=== PATIENT | male | born 1995 | race Hispanic/Latino ===

== ENCOUNTER 2021-07-18 05:40 | Day surgery (SDC) | payer OTHER ==
--- NOTE | 2021-07-18 06:18 | ER ---
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 Coronavirus screen: Vaccine status: Patient reports receiving the 2nd dose of the covid vaccine. Ebola Screen: Patient negative for fever greater than or equal to 101.5 degrees Fahrenheit, and additional compatible Ebola Virus Disease symptoms Patient denies exposure to infectious person. Patient denies travel to an Ebola-affected area in the 21 days before illness onset. No symptoms or risks identified at this time. Complicating Factors: There are no complicating factors for this patient. Initial Sepsis Screen: Does the patient meet any 2 criteria? No. Patient's initial sepsis screen is negative. Does the patient have a suspected source of infection? Yes: Skin breakdown/wound. Risk Assessment: Do you want to hurt yourself or someone else? Patient reports no desire to harm self or others. Onset of symptoms was July 18, 2021. 05:47 Method Of Arrival: Ambulatory em 05:47 Acuity: ANGELICA 3 em Triage Assessment: 06:00 General: Appears in no apparent distress. obese, well groomed, well developed. Neuro: dc2 No deficits noted. Respiratory: No deficits noted. GI: No deficits noted. : No signs and/or symptoms were reported regarding the genitourinary system. Musculoskeletal: No deficits noted. Injury Description: Avulsion sustained to see triage - right index finger is partial was sustained 6-12 hours ago. 06:00 General: Behavior is calm, cooperative. dc2 06:00 Pain: Complains of pain in Right index finger. dc2 06:00 Injury Description: Laceration. dc2 Historical: - Allergies: 05:50 No Known Allergies; em - PMHx: 05:50 None; em - PSHx: 05:50 None; em - Immunization history:: Last tetanus immunization: < 5 years ago. - Social history:: Smoking status: Patient denies any tobacco usage or history of. - Family history:: not pertinent. Screenin:00 Abuse screen: Denies threats or abuse. Denies injuries from another. Nutritional dc2 screening: No deficits noted. Tuberculosis screening: No symptoms or risk factors identified. Never had TB. 06:00 Fall Risk None identified. No fall in past 12 months (0 pts). dc2 Assessment: 06:00 General: Appears in no apparent distress. obese, well groomed, well developed. Neuro: dc2 No deficits noted. Cardiovascular: No deficits noted. Respiratory: No deficits noted. GI: No deficits noted. : No signs and/or symptoms were reported regarding the genitourinary system. Derm: Skin Avulsion to right index finger. Musculoskeletal: No deficits noted. 06:00 Injury Description: Laceration is jagged, bleeding moderately, avulsion to right index dc2 finger , was wrapped when came to ED with mod amount of bleeding, wound irrigated with normal saline and rewrapped with pressure dressing by BRUNILDA Hewitt. 06:45 Reassessment: Patient appears in no apparent distress at this time. Pain: Complains of em pain in right hand Pain currently is 1 out of 10 on a pain scale. 06:45 General: Small amt bleeding noted of intact saline dsg right index finger; reports not em needing "block" of right index finger; reports eating chicken biscuit \\T\\ [id number]-[id number] \\T\\ [address] Jett informed with no new order rec'd; instructed not to eat or drink anything due to scheduled surgery with v/u.. 07:17 General: Appears in no apparent distress. comfortable, Behavior is calm, cooperative, tw5 appropriate for age. Pain: Complains of pain in dorsal aspect of distal phalanx of right index finger and right index fingernail Pain currently is 1 out of 10 on a pain scale. Neuro: No deficits noted. Level of Consciousness is awake, alert, obeys commands, Oriented to person, place, time, situation. GI: Reports. Vital Signs: 05:47 BP 146 / 86; Pulse 56; Resp 18; Temp 97.8; Pulse Ox 99% on R/A; Weight 108.86 kg; em Height 5 ft. 9 in. (175.26 cm); Pain 5/10; 06:15 BP 132 / 77; Pulse 52; Resp 17; Pulse Ox 100% ; Pain 4/10; dc2 06:30 BP 121 / 86; Pulse 53; Resp 20; Pulse Ox 100% ; cc4 07:00 BP 119 / 72; Pulse 69; Resp 20; Pulse Ox 99% on R/A; cc4 05:47 Body Mass Index 35.44 (108.86 kg, 175.26 cm) em ED Course: 05:43 Patient arrived in ED. wm 05:44 Reinaldo Jett MD is Attending Physician. marlyn 05:50 Triage completed. em 05:50 Arm band placed on. em 05:55 ED physician to see patient. dc2 06:00 court monitor on. Pulse ox on. dc2 06:00 No provider procedures requiring assistance completed. dc2 06:13 Clayton Gomez MD is Hospitalizing Provider. marlyn 06:15 Inserted saline lock: 20 gauge in left antecubital area, using aseptic technique. Blood dc2 collected. 06:21 Comprehensive Metabolic Panel Sent. dc2 06:21 CBC w/o diff Sent. dc2 06:24 Patient has correct armband on for positive identification. Bed in low position. Call dc2 light in reach. Side rails up X 1. 06:48 Rena Reynoso RN is Primary Nurse. cc4 06:54 COVID-19 : Document "Date of Symptom Onset" if Symptomatic. Sent. cc4 07:08 Hand Right 3 View XRAY Sent. cc4 07:17 Primary Nurse role handed off by Rena Reynoso, RN tw5 07:17 Waleska Torres is Primary Nurse. tw5 07:17 No apparent distress. Resting quietly. Awaiting surgery, Awaiting: Patient reports last tw5 known meal at 0500 on July 18. 07:17 Recheck. Wound care: was dressed with 4X4s, saline soaked gauze. , Patient tolerated tw5 well. 08:40 Patient transferred, IV remains in place. intact. tw5 Administered Medications: 06:19 Drug: Ancef (cefazolin) 1 grams Route: IVPB; Infused Over: 30 mins; Site: left dc2 antecubital; Delivery: Primary tubing; 06:20 Drug: Tetanus-Diphtheria Toxoid Adult 0.5 ml {Trench Trimmer Fine: [employer]. Exp: dc2 02/18/2023. Lot #: [id number]. } Route: IM; Site: left deltoid; 07:09 Not Given (Patient Refused): Lidocaine (1 %) 5 ml 5 ml Infiltration once; to bedside cc4 07:10 Not Given (Patient Refused): Bupivacaine (0.5 %) 0.5 ml 10 ml Infiltration once cc4 Outcome: 06:18 Decision to Hospitalize by Provider. [facility] 08:39 Admitted to OR accompanied by nurse, via wheelchair, with chart, Report called to Angie Tafoya at the bedside 08:39 Condition: stable 08:40 Patient left the ED. [facility] Signatures: Reinaldo Jett MD MD cha Munoz, Edgar, RN RN Marcella Hurley Christie RN RN 4 Mariangel Staples RN RN Waleska Hanson [facility] Corrections: (The following items were deleted from the chart) 07:09 06:10 Bupivacaine (0.5 %) 0.5 ml 10 ml Infiltration in affected area 10 ml dc2 cc4 07:09 06:10 Lidocaine (1 %) 5 ml 5 ml Infiltration in affected area 5 ml dc2 cc4 07:21 07:17 Reassessment: dc2 em
--- NOTE | 2021-07-18 06:18 | EDPHYS ---
Physician Documentation [facility] Name: Nathaniel Koo Age: 25 yrs Sex: Male : 1995 Arrival Date: 07/18/2021 Time: 05:43 Bed 16 Private MD: ED Physician Reinaldo Jett HPI: 07/18 06:04 This 25 yrs old Male presents to ER via Ambulatory with complaints of marlyn Laceration. 06:04 The patient or guardian reports decreased range of motion, pain. The complaints affect marlyn the right hand diffusely. Context: The problem was sustained outdoors. Onset: The symptoms/episode began/occurred 1 day(s) ago. Modifying factors: The symptoms are alleviated by nothing, elevation, the symptoms are aggravated by nothing. Associated signs and symptoms: The patient has no apparent associated signs or symptoms. The patient has not experienced similar symptoms in the past. Historical: - Allergies: 05:50 No Known Allergies; em - PMHx: 05:50 None; em - PSHx: 05:50 None; em - Immunization history:: Last tetanus immunization: < 5 years ago. - Social history:: Smoking status: Patient denies any tobacco usage or history of. - Family history:: not pertinent. ROS: 06:04 Constitutional: Negative for fever, chills, and weight loss, Eyes: Negative for injury, marlyn pain, redness, and discharge, ENT: Negative for injury, pain, and discharge, Neck: Negative for injury, pain, and swelling, Cardiovascular: Negative for chest pain, palpitations, and edema, Respiratory: Negative for shortness of breath, cough, wheezing, and pleuritic chest pain, Abdomen/GI: Negative for abdominal pain, nausea, vomiting, diarrhea, and constipation, Back: Negative for injury and pain, : Negative for injury, bleeding, discharge, and swelling, Skin: Negative for injury, rash, and discoloration, Neuro: Negative for headache, weakness, numbness, tingling, and seizure, Psych: Negative for depression, anxiety, suicide ideation, homicidal ideation, and hallucinations, Allergy/Immunology: Negative for hives, rash, and allergies, Endocrine: Negative for neck swelling, polydipsia, polyuria, polyphagia, and marked weight changes, Hematologic/Lymphatic: Negative for swollen nodes, abnormal bleeding, and unusual bruising. 06:04 MS/extremity: Positive for decreased range of motion, pain, tenderness, of the dorsal aspect of distal phalanx of right index finger, palmar aspect of distal phalanx of right index finger and right index fingernail. Exam: 06:04 Constitutional: This is a well developed, well nourished patient who is awake, alert, marlyn and in no acute distress. Head/Face: Normocephalic, atraumatic. Eyes: Pupils equal round and reactive to light, extra-ocular motions intact. Lids and lashes normal. Conjunctiva and sclera are non-icteric and not injected. Cornea within normal limits. Periorbital areas with no swelling, redness, or edema. ENT: Nares patent. No nasal discharge, no septal abnormalities noted. Tympanic membranes are normal and external auditory canals are clear. Oropharynx with no redness, swelling, or masses, exudates, or evidence of obstruction, uvula midline. Mucous membranes moist. Neck: Trachea midline, no thyromegaly or masses palpated, and no cervical lymphadenopathy. Supple, full range of motion without nuchal rigidity, or vertebral point tenderness. No Meningismus. Chest/axilla: Normal chest wall appearance and motion. Nontender with no deformity. No lesions are appreciated. Cardiovascular: Regular rate and rhythm with a normal S1 and S2. No gallops, murmurs, or rubs. Normal PMI, no JVD. No pulse deficits. Respiratory: Lungs have equal breath sounds bilaterally, clear to auscultation and percussion. No rales, rhonchi or wheezes noted. No increased work of breathing, no retractions or nasal flaring. Abdomen/GI: Soft, non-tender, with normal bowel sounds. No distension or tympany. No guarding or rebound. No evidence of tenderness throughout. Back: No spinal tenderness. No costovertebral tenderness. Full range of motion. Male : Normal genitalia with no discharge or lesions. Neuro: Awake and alert, GCS 15, oriented to person, place, time, and situation. Cranial nerves II-XII grossly intact. Motor strength 5/5 in all extremities. Sensory grossly intact. Cerebellar exam normal. Normal gait. Psych: Awake, alert, with orientation to person, place and time. Behavior, mood, and affect are within normal limits. 06:04 Musculoskeletal/extremity: Extremities: grossly normal except: noted in the dorsal aspect of distal phalanx of right index finger and palmar aspect of distal phalanx of right index finger: decreased ROM, pain, ROM: limited active range of motion, limited passive range of motion, limited active range of motion due to pain, limited passive range of motion due to pain, Circulation is intact in all extremities. Sensation intact. Compartment Syndrome exam of affected extremity: is normal. DVT Exam: negative Homans' sign noted on exam, no appreciated bluish discoloration, no erythema, no increased warmth, pain, swelling, tenderness. Vital Signs: 05:47 BP 146 / 86; Pulse 56; Resp 18; Temp 97.8; Pulse Ox 99% on R/A; Weight 108.86 kg; em Height 5 ft. 9 in. (175.26 cm); Pain 5/10; 06:15 BP 132 / 77; Pulse 52; Resp 17; Pulse Ox 100% ; Pain 4/10; dc2 06:30 BP 121 / 86; Pulse 53; Resp 20; Pulse Ox 100% ; cc4 07:00 BP 119 / 72; Pulse 69; Resp 20; Pulse Ox 99% on R/A; cc4 05:47 Body Mass Index 35.44 (108.86 kg, 175.26 cm) em Procedures: 06:45 Performed digit block, pt refused. marlyn MDM: 05:52 Patient medically screened. [facility] 06:04 Differential diagnosis: open fracture. Data reviewed: vital signs, nurses notes, lab [facility] test result(s), EKG, radiologic studies, plain films. Data interpreted: laboratory monitor: rate is 56 beats/min, rhythm is regular, Pulse oximetry: on. Test interpretation: by ED physician or midlevel provider: plain radiologic studies. Counseling: I had a detailed discussion with the patient and/or guardian regarding: the historical points, exam findings, and any diagnostic results supporting the discharge/admit diagnosis, lab results, radiology results, the need for further work-up and treatment in the hospital. Physician consultation: Clayton Gomez MD and will see patient in ED, in OR, admit to me, npo , abx. shortly. 07/18 06:04 Order name: CBC w/o diff [facility] 07/18 06:04 Order name: Comprehensive Metabolic Panel [facility] 07/18 06:04 Order name: Hand Right 3 View XRAY [facility] 07/18 06:27 Order name: COVID-19 : Document "Date of Symptom Onset" if Symptomatic. tt3 07/18 07:36 Order name: [facility] 07/18 06:04 Order name: Dressing - Wound; Complete Time: 06:22 [facility] 07/18 06:04 Order name: Gloves, Sterile; Complete Time: 06:22 [facility] 07/18 06:04 Order name: Setup Suture Tray; Complete Time: 06:19 marlyn Administered Medications: 06:19 Drug: Ancef (cefazolin) 1 grams Route: IVPB; Infused Over: 30 mins; Site: left dc2 antecubital; Delivery: Primary tubing; 06:20 Drug: Tetanus-Diphtheria Toxoid Adult 0.5 ml {Filbert Grower: [employer]. Exp: dc2 02/18/2023. Lot #: [id number]. 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, initial marlyn encounter Forms: - Medication Reconciliation Form marlyn - SBAR form marlyn Signatures: Dispatcher [employer] Reinaldo Melendez MD MD cha Munoz, Edgar RN Rena Fish RN RN cc4 Jhoan, Mariangel RN RN dc2 Corrections: (The following items were deleted from the chart) 06:46 06:18 Nerve block: (digital) of dorsal aspect of proximal phalanx of right index finger marlyn and palmar aspect of proxima; phalanx of right index finger Medication: Lidocaine 1% without epinephrine Marcaine 0.5%, Amount: 5 mls were injected, Effect: the patient's symptoms are improved, markedly, Performed by Reinaldo Jett MD Patient tolerated well. marlyn
[2021-07-18] MEDS ORDERED: BUPIVACAINE 0.5% PF 10 ML VIAL ONE ×2 (06:31→09:52)
[2021-07-18] MEDS ORDERED: LIDOCAINE 1% MPF 5 ML VIAL ONE (06:31)
[2021-07-18 06:33] LABS: Hematocrit 46.7 % (39.6-49.0); MPV 8.9 fL (7.6-11.3); RBC Red Blood Cell Count 5.06 M/uL (4.33-5.43)
[2021-07-18 06:35] LABS: ALT/SGPT 34 U/L (12-78); AST/SGOT 18 U/L (15-37); Albumin 4.3 g/dL (3.4-5.0); Alkaline Phosphatase 80 U/L (45-117); BUN Blood Urea Nitrogen 7 mg/dL (7-18); Bicarbonate 25 mmol/L (21-32); Bilirubin Total 0.9 mg/dL (0.2-1.0); Glucose Level 160 mg/dL (74-106); Potassium 3.8 mmol/L (3.5-5.1); Protein, Total 7.7 g/dL (6.4-8.2); Sodium Level 141 mmol/L (136-145)
[2021-07-18] MEDS ORDERED: TETANUS & DIPHTHERIA TOX,ADULT 0.5 ML VIAL ONE (06:40)
[2021-07-18] MEDS ORDERED: NA CHLORIDE 0.9% 100 ML ONE (06:41)
--- NOTE | 2021-07-18 07:35 | RAD REPORT ---
EXAM DESCRIPTION: RAD - Hand Right 3 View - 07/18/2021 7:29 am CLINICAL HISTORY: Pain;Smash injury COMPARISON: No comparisons FINDINGS: Traumatic amputation of the tuft second distal phalanx with associated soft tissue injury to the tip of the second digit. DIP joint and most of the second distal phalanx are intact. No foreig n body is identified. Remainder of the hand is intact. IMPRESSION: Traumatic amputation of the tuft second distal phalanx with associated soft tissue injur y. No foreign body.
[2021-07-18] MEDS ORDERED: MORPHINE 4 MG/ML SYR IV PRN (08:28)
[2021-07-18] MEDS ORDERED: NA CHLORIDE 0.9% 1,000 ML IV SCH (08:28)
[2021-07-18] MEDS ORDERED: ONDANSETRON 4 MG/2 ML VIAL IV PRN (08:28)
[2021-07-18] MEDS ORDERED: ACETAMINOPHEN 325 MG TABLET PO PRN (08:30)
[2021-07-18 08:45] VITALS: O2SAT 100
[2021-07-18] MEDS ORDERED: Ringers Lactate 1,000 ML IV ONE (09:16)
[2021-07-18] MEDS: LIDOCAINE 1% MPF 2 ML AMPULE ONE ×2 (10:00→10:14)
[2021-07-18] MEDS: CEFAZOLIN SODIUM 1 GM/VIAL ONE ×2 (10:00→10:05)
[2021-07-18] MEDS ORDERED: CEFAZOLIN SODIUM 1 GM/VIAL ONE (10:24)
[2021-07-18] MEDS ORDERED: CODEINE 30MG/APAP 300MG TAB PO ONE (11:00)
[2021-07-18] MEDS ORDERED: CODEINE 30MG/APAP 300MG TAB ONE (11:19)
[2021-07-18 11:43] VITALS: BP 135/82; TEMP 98.1
[2021-07-18] MEDS ORDERED: CEFAZOLIN/NS 1gm 1 GM/50 ML BAG IVPB SCH (12:00)
--- NOTE | 2021-07-18 15:11 | OP ---
Surgeon: Clayton Gomez MD Preoperative Diagnosis: Tip amputation of the right index finger. Postoperative Diagnosis: Tip amputation of the right index finger. Procedures Performed: Debridement of skin and subcutaneous tissue, bone and flap closure, nail bed repair. Anesthesia: Digital block. Procedure In Detail: Digital block 20 mL of lidocaine 1% without epi was used in the holding area. Then, he was brought to surgery. Right hand was prepped with Betadine scrub and Betadine paint. Dry sterile drapes were applied in usual manner. The digital tourniquet was applied using 6 gloves. The index finger was then placed on roll lock table. A scalpel was used to debride skin and subcutaneous tissue. The nail plate was missing. The bone was debrided with a bone cutter and file. The wound was jet lavaged and irrigated with 1 L of dilute Betadine solution. The volar flap was advanced and closed after nail bed was repaired with 5-0 PDS on nail bed 4-0 Prolene simple sutures. Dressed with Xeroform, 2-inch Fredi. The tourniquet was removed prior to dressing application. The patient tolerated the procedure well and returned to Recovery. BEVERLY/ANA ROSA Voice ID: [id number] Report ID: [id number] JOHN
== END 2021-07-18 11:05 | disposition home or self-care (01) ==
LOC: ER 05:40 → DS 06:21
PROVIDERS: ATTEND Specialist
PROC: 0HXFXZZ Transfer Right Hand Skin, External Approach (ICD-10-PCS; 2021-07-18)
PROC: 0HQQXZZ Repair Finger Nail, External Approach (ICD-10-PCS; 2021-07-18)
PROC: 0PBT0ZZ Excision of Right Finger Phalanx, Open Approach (ICD-10-PCS; principal; 2021-07-18 09:15)
DX: S68.620A Partial traumatic transphalangeal amputation of right index finger, initial encounter (principal); X58.XXXA Exposure to other specified factors, initial encounter; Y93.9 Activity, unspecified; Y92.814 Boat as the place of occurrence of the external cause; Y99.0 Civilian activity done for income or pay; Z20.822 Contact with and (suspected) exposure to COVID-19
CPT/HCPCS: 14040; 11044; 11760; 36415; 88304; 88311; 85027; 80053; 73130; 90471; 90714; 96374; 99285; U0003; J7120; J0690 ×2